=== PATIENT | male | born 1970 | race Caucasian/White ===

== ENCOUNTER 2021-04-02 00:16 | Day surgery (SDC) | payer BC, SELFPAY ==
[2021-03-18 13:33] VITALS: BMI 34.0
--- NOTE | 2021-04-01 14:27 | P.PNAN_ITS ---
Anes - Initial Pre Proc Eval Procedure: Operation Date: 04/02/21 09:15 Proposed Procedures p Screening Colonoscopy - Julian Moreno MD Date/Time: 04/01/21 14:27 Surgeon: Julian Moreno MD Pre Op Diagnosis: neoplasm screening, hx colon polyps Patient Data Age: 50 Gender: M Height: 1.88 m Weight: 120.3 kg Allergies Allergy/AdvReac Type Severity Reaction Status Date / Time No Known Allergies Allergy Unknown Verified 04/02/21 07:51 Home Medications Medication Instructions Recorded Confirmed Type loratadine 10 mg tablet 10 mg PO DAILY 04/24/20 04/02/21 History omeprazole 20 mg tablet,delayed 20 mg PO DAILY 04/24/20 04/02/21 History release Patient hx anesthesia problems: none Family hx anesthesia problems: none Results Review: All pre-operative results and documents have been reviewed as part of the pre-operative evaluation. FORMERLY [facility], [facility] Past Medical History Medical History (Updated 04/01/21 @ 14:27 by Malcom Burdick MD) Chronic GERD Obesity (BMI 30.0-34.9) Splenic mass ct 6.28.17 MRI 7.20.17 PET 8.3.17: repeat ct in 6 months wikiera: 8.25.17- likely benign. repeat MRI in one year. Family History Family History Mother Carcinoma of colon Other Asthma Diabetes mellitus Family history of malignant neoplasm Social History Social History (Updated 04/24/20 @ 13:21 by Haylee Herbert CMA) Smoking status: Never smoker Alcohol intake: current Drinks per week: 3 Alcohol use details: MARY Substance use: never Substance use type: does not use Living arrangements: with family Gender identity (if verbalized by the patient): Male Spiritual care concerns: No Anes - Eval Final PreProcedure Day of Procedure 04/01/21 14:27 Patient weight: obese Heart: regular rate and rhythm Lungs: clear to auscultation and normal air movement Airway: Mallampati scale class II Neurological: alert and oriented Last oral intake: >/= 8 hours ASA classification: II Emergent: no Anesthetic plan: proceed Anesthesia type and monitoring: general GIVS Results Review: All pre-operative results and documents have been reviewed as part of the pre-operative evaluation. Informed Consent: The patient's anesthetic plan and its attendant risks and benefits were discussed with the patient/family/POA. Questions were solicited and answers provided to the satisfaction of the patient/family/POA.
[2021-04-02 07:52] VITALS: BP 147/104; PULSE 81; RESP 16; TEMP 36; O2SAT 98; BMI 34.6
[2021-04-02] MEDS: LACTATED RINGERS 1,000 ML 150 ML IV CONT (08:01)
--- NOTE | 2021-04-02 08:26 | WPDGICN ---
Assessment and Plan Assessment and plan (1) Family history of colon cancer in mother: Code(s): Z80.0 - Family history of malignant neoplasm of digestive organs Status: Acute Assessment and Plan: Patient's mother has had colon cancer. For this reason screening colonoscopy is advised at 5 year intervals in the future. (2) History of colon polyps: Code(s): Z86.010 - Personal history of colonic polyps Status: Acute Assessment and Plan: Patient has a prior history of colon polyps. Most recently 5 years ago. Plan is for surveillance colonoscopy now and at 5 year intervals in the future. GI Consult Note Consult date/time: 04/02/21 08:26 HPI: Carmelo Rodriges is a 50 year old male Presents for colonoscopy. Patient has a history of colon polyps most recently in 2016. Patient's family history is significant his mother had colon cancer. Patient presents today for surveillance colonoscopy. Reports his current weight appetite bowel movements are normal. He denies abdominal pain. He has had no bleeding. Colonoscopy will be performed today. Review of Systems Review of Systems: All systems reviewed & are unremarkable except as noted in HPI and below PMFSH Past Medical History Medical History (Updated 04/02/21 @ 08:28 by Julian Moreno MD) Chronic GERD Obesity (BMI 30.0-34.9) Splenic mass ct 6.28.17 MRI 7.20.17 PET 8.3.17: repeat ct in 6 months wikiera: 8.25.17- likely benign. repeat MRI in one year. Family History Family History Mother Carcinoma of colon Other Asthma Diabetes mellitus Family history of malignant neoplasm Social History Social History (Updated 04/24/20 @ 13:21 by Haylee Herbert CMA) Smoking status: Never smoker Alcohol intake: current Drinks per week: 3 Alcohol use details: MARY Substance use: never Substance use type: does not use Living arrangements: with family Gender identity (if verbalized by the patient): Male Spiritual care concerns: No Meds Home Medications and Allergies Home Medications Medication Instructions Recorded Confirmed Type loratadine 10 mg tablet 10 mg PO DAILY 04/24/20 04/02/21 History omeprazole 20 mg tablet,delayed 20 mg PO DAILY 04/24/20 04/02/21 History release Allergies Allergy/AdvReac Type Severity Reaction Status Date / Time No Known Allergies Allergy Unknown Verified 04/02/21 07:51 Vital Signs Vital Signs - 24 hr 04/02/21 07:52 Temperature 96.8 F L Pulse Rate 81 Respiratory Rate 16 Blood Pressure 147/104 H Pulse Oximetry 98 Exam Narrative: Physical exam reveals patient be alert. Vital signs stable. HEENT exam is unremarkable. Patient is anicteric. Lungs are clear to auscultation and percussion. Heart is without murmur or extra sounds. Abdominal exam bowel sounds are present soft nontender with no organomegaly. Digital external rectal exam is normal.
[2021-04-02 09:19] VITALS: BP 119/77; PULSE 79; RESP 17; O2SAT 94
[2021-04-02 09:29] VITALS: BP 115/80; PULSE 68; RESP 16; O2SAT 96
[2021-04-02 09:39] VITALS: BP 126/92; PULSE 64; RESP 15; O2SAT 97
== END 2021-04-02 09:48 | disposition home or self-care (01) ==
PROVIDERS: PCP Family Medicine; Visit Provider Internal Medicine Gastroenterology
PROC: 0DJD8ZZ Inspection of Lower Intestinal Tract, Via Natural or Artificial Opening Endoscopic (ICD-10-PCS; CPT 45378; principal; 2021-04-02 09:15)
DX: Z12.11 Encounter for screening for malignant neoplasm of colon (principal); K64.8 Other hemorrhoids; Z86.010 Personal history of colon polyps; Z80.0 Family history of malignant neoplasm of digestive organs; K21.9 Gastro-esophageal reflux disease without esophagitis; E66.9 Obesity, unspecified; Z68.34 Body mass index [BMI] 34.0-34.9, adult
CPT/HCPCS: 45378; J2704; J7120

== ENCOUNTER 2021-07-21 19:36 | Emergency (ER) | payer BC, SELFPAY ==
--- NOTE | ~2021-07-21 | XR_ITS ---
XR abdomen/kub 1V DATE: 07/21/2021 19:58 INDICATION: Bilateral back pain radiating anteriorly. Diarrhea. TECHNIQUE: 2 AP views COMPARISON: 01/16/2018 MRI abdomen / CT abdomen pelvis FINDINGS: Nonspecific bowel gas pattern without evidence of obstruction. The psoas shadows are intact . No visceromegaly is evident. Some calcified pelvic phleboliths are noted. IMPRESSION: Nonspecific abdomen Reviewed, dictated and finalized at [facility]. Reviewed, dictated and finalized at [facility]. ATION PRODUCER IMPRESSION: Nonspecific abdomen
--- NOTE | 2021-07-21 19:39 | ED.ABDPAIN ---
HPI - Abdominal Pain General Chief Complaint: Urogenital-Male Stated Complaint: abdomen and back pain Time Seen by Provider: 07/21/21 19:39 Source: patient, RN notes reviewed and old records reviewed Mode of arrival: ambulatory Limitations: no limitations History of Present Illness HPI narrative: 51-year-old patient [facility] complaints of severe right back radiating to abdomen starting last night. Some left back pain radiating to abdomen, right flank to abdomen pain greater than left. Woke him up from a sound sleep last night. Patient had difficulty sleeping last night and pain continued today. Patient has been unable to get any relief from pain. Patient also started having diarrhea last night when the pain started has been having diarrhea throughout the day today. Urinated this morning, has only been urinating small amounts since then. Was able to give urine specimen in clinic of 30 mL. Reports passing kidney stones 2 weeks ago, it felt a lot like this . Denies abdominal pain other than when pain radiates from back to abdomen. Has had sweats off and on all day today. MD elicited complaint: abdominal pain and flank pain (Both, right greater than left) Related Data Home Medications Medication Instructions Recorded Confirmed loratadine 10 mg tablet 10 mg PO DAILY 04/24/20 07/21/21 omeprazole 20 mg tablet,delayed 20 mg PO DAILY 04/24/20 07/21/21 release Allergies Allergy/AdvReac Type Severity Reaction Status Date / Time No Known Allergies Allergy Unknown Verified 07/21/21 19:51 Review of Systems Review of Systems: CONSTITUTIONAL: Denies fever or chills. Reports sweats off and on all day. EYES: Denies visual changes, redness, or discharge. ENT: Denies rhinorrhea, congestion, sore throat, or otalgia. CARDIOVASCULAR: Denies chest pain, palpitations, or edema. RESPIRATORY: Denies cough or dyspnea. GASTROINTESTINAL: Denies nausea, vomiting. Reports diarrhea since yesterday. GENITOURINARY: Denies hematuria. Some burning with urination. SKIN: Denies rash or itching. MUSCULOSKELETAL: Bilateral flank pain radiating to abdomen, right sided pain greater than left. NEUROLOGIC: Denies headache, numbness, or weakness. PSYCHIATRIC: Denies anxiety or depression. All other systems reviewed are negative, except as documented in HPI. All systems reviewed & are unremarkable except as noted in HPI and below PMFSH Past Medical History Medical History Chronic GERD Obesity (BMI 30.0-34.9) Splenic mass ct 6.28.17 MRI 7.20.17 PET 8.3.17: repeat ct in 6 months wikiera: 8.25.17- likely benign. repeat MRI in one year. Surgical History Surgical History (Updated 07/22/21 @ 01:18 by Melodie Knight PA-C) No pertinent past surgical history Family History Family History Mother Carcinoma of colon Other Asthma Diabetes mellitus Family history of malignant neoplasm Social History Social History Smoking status: Never smoker Alcohol intake: current Drinks per week: 3 Alcohol use details: MARY Substance use: never Substance use type: does not use Gender identity (if verbalized by the patient): Male Spiritual care concerns: No Comments At time of signature, agree with nursing past medical, surgical, social and family history. There is no relevant family history pertinent to the presenting complaint Exam Narrative: GENERAL: present in exam room. Well-appearing, well-nourished, male and in no acute distress. Mildly ill-appearing, uncomfortable due to back and abdominal pain. HEAD: Normocephalic, atraumatic. EYES: Conjunctivae clear, and EOMI. ENT: Nares clear, no rhinorrhea or epistaxis. Mucous membranes moist. NECK: Supple. Full range of motion. No lymphadenopathy CHEST: Clear to auscultation, anteri
[2021-07-21 19:48] VITALS: BP 124/96; PULSE 127; RESP 24; TEMP 38.2; O2SAT 99
== END 2021-07-21 20:19 | disposition short-term general hospital (02) ==
PROVIDERS: Emergency Provider Nurse Practitioner Family; PCP Family Medicine
DX: R10.9 Unspecified abdominal pain (principal); R39.198 Other difficulties with micturition; E66.9 Obesity, unspecified; Z68.33 Body mass index [BMI] 33.0-33.9, adult
CPT/HCPCS: 74018; 81003; 87086; 99212; G0463

== ENCOUNTER 2021-07-21 20:31 | Emergency (ER) | payer BC, SELFPAY ==
--- NOTE | ~2021-07-21 | CT_ITS ---
EXAMINATION: CT abdomen pelvis wo con DATE: 07/21/2021 22:54 INDICATION: Right flank pain. History of kidney stones. TECHNIQUE: Computed tomography (CT) of the abdomen and pelvis was performed without intravenous contr ast. Automated exposure control and iterative reconstruction technique were employed. Exam dose: 900 .66 mGy-cm total exam DLP. COMPARISON: 07/21/2021 KUB 08/29/2012 CT abdomen pelvis FINDINGS: Stable 7.7 mm peripheral left lower lobe high density pulmonary nodule since 08/29/2012, like ly a benign calcified pulmonary granuloma. New findings since 09/08/2012: Additional 4 mm left lower lobe nodule at the posterior aspect of the diaphragm. At least several 4 mm or smaller additional right lower lobe pulmonary nodules. There is mild discoid atelectasis or scarring in the lower lobes. Normal heart size. No pericardial or pleural effusion. Hepatic steatosis. No hepatic space-occupying mass lesion or bile duct dilatation is evident. Approximately 3 cm subtle hypoattenuating mass is suggested in the dome of the spleen. CT examination with IV contrast material or MRI would be helpful for further evaluation. The gallbladder is present. No bile duct or pancreatic duct dilatation. No pancreatic mass lesion or calcification. Normal morphology of the adrenal glands. No urinary tract calculus or hydroureteronephrosis. Normal caliber of the abdominal aorta. No intraperitoneal or retroperitoneal or pelvic mass lesion or adenopathy or ascites. There is prostate enlargement and calcification. The urinary bladder is unremarkable. Normal appendix. No bowel obstruction or intraperitoneal free air. Small fat-containing inguinal hernia. Moderately severe degenerative disc disease and mild retrolisthesis at L5-S1. No suspicious osteolyti c or osteoblastic lesions. IMPRESSION: No urinary tract calculus or hydroureteronephrosis Hepatic steatosis Nonspecific 3 cm mass at that the splenic dome, consider CT examination with IV contrast material or MRI Prostate enlargement and calcification Occasional 4 mm smaller lower lung pulmonary nodules, nonspecific; the absence of any risk factors, c onsider CT follow-up in 12 months Reviewed, dictated and finalized at [facility] Reviewed, dictated and finalized at [facility]. S MANAGER IMPRESSION: No urinary tract calculus or hydroureteronephrosis Hepatic steatosis Nonspecific 3 cm mass at that the splenic dome, consider CT examination with IV contrast material or MRI Prostate enlargement and calcification Occasional 4 mm smaller lower lung pulmonary nodules, nonspecific; the absence of any risk factors, consider CT follow-up in 12 months
[2021-07-21 20:46] VITALS: BP 133/86; PULSE 109; RESP 18; TEMP 36.9; O2SAT 97
[2021-07-21 21:02] LABS: Basophils Percent Auto 0.3 % (0.2-1.2); Eosinophils Absolute Auto 0.1 K/mm3 (0-0.3); Eosinophils Percent Auto 0.6 % (0-4.4); Hematocrit 49.7 % (42.0-52.0); Hemoglobin 17.3 g/dL (14.0-18.0); Immature Granulocyte Absolute 0.05 K/mm3 (0.00-0.031); Immature Granulocyte Percent A 0.6 % (0-0.5); Lymphocytes Absolute Auto 0.56 K/mm3 (0.9-3.2); Lymphocytes Percent Auto 6.5 % (18.3-44.2); Mean Corpuscular HGB Conc 34.8 g/dl (32-36); Mean Corpuscular Volume 83.4 fl (80-100); Mean Platelet Volume 12.8 fl (7.4-10.4); Monocytes Absolute Auto 0.6 K/mm3 (0.1-0.6); Monocytes Percent Auto 6.5 % (2.6-8.5); Neutrophils Absolute Auto 7.4 K/mm3 (1.3-6.7); Neutrophils Percent Auto 85.5 % (45.5-73.1); Platelet Count Result 181 k/mm3 (150-375); Red Blood Count 5.96 M/mm3 (4.6-6.20); Red Cell Distribution Width 14.1 % (11.5-14.5); White Blood Count 8.6 K/mm3 (4.5-10.0)
[2021-07-21 21:11] LABS: Alanine Aminotransferase 56 U/L (4-50); Albumin Level 4.1 g/dL (3.5-5.1); Alkaline Phosphatase 90 U/L (38-126); Anion Gap 10 mmol/L (8-16); Aspartate Amino Transferase 33 U/L (17-59); Bilirubin,Total 1.5 mg/dL (0.2-1.3); Blood Urea Nitrogen 16 mg/dL (9-20); Calcium 8.6 mg/dL (8.4-10.2); Carbon Dioxide 19 mmol/L (22-30); Chloride 109 mmol/L (98-107); Estimated CRCL calculation 93 ml/min; Estimated Glomerular Filt Rate > 60; Glucose 122 mg/dL (65-110); Potassium 3.9 mmol/L (3.4-5.0); Sodium 138 mmol/L (137-145)
[2021-07-21 22:29] LABS: Add Urine Microscopic? YES; Appearance Urine Clear (Clear); Bilirubin Urine Negative (Negative); Blood Urine Negative (Negative); Color Urine Yellow (Yellow); Glucose Urine UA Negative (Negative); Ketones Urine Trace mg/dL (Negative); Leukocyte Esterase Ur Negative LEU/UL (Negative); Mucus Urine Few /lpf; Nitrate Urine Negative (Negative); Protein Urine 1+ mg/dL (Negative); RBC Urine 0-2 /hpf (0-2); Squamous Epithelial Cell Urine Occasional /hpf (Few); Urobilinogen Urine Negative mg/dL (<2.0); WBC Urine 0-3 /hpf
[2021-07-21 22:33] LABS: Specific Grav Ur 1.032 (1.001-1.035)
--- NOTE | 2021-07-21 22:34 | ED.ABDPAIN ---
HPI - Abdominal Pain General Chief Complaint: Abdominal Pain <AARON Rodriguez Last Filed: 07/22/21 01:23> Stated Complaint: right flank abd pain <AARON Rodriguez Last Filed: 07/22/21 01:23> Time Seen by Provider: 07/21/21 22:20 <AARON Rodriguez Last Filed: 07/22/21 01:23> Source: patient <AARON Rodriguez Last Filed: 07/22/21 01:23> Mode of arrival: ambulatory <AARON Rodriguez Last Filed: 07/22/21 01:23> Limitations: no limitations <AARON Rodriguez Last Filed: 07/22/21 01:23> History of Present Illness HPI narrative: Patient is a 51-year-old male with no significant past medical history who presents to the ED from urgent care with complaints of right flank pain rating around to his right lower abdomen that began last night. Patient has a history of kidney stones and states he last passed a stone 2 weeks ago. He did not experience flank pain at that time, but had pain when the stone was traveling through his urethra. He has not seen a urologist for this. Patient also reports having nausea, diarrhea, dysuria, and oliguria today, but he denies any known fever, vomiting, hematuria. Patient took ibuprofen this morning at 4:30 PM today. <AARON Rodriguez Last Filed: 07/22/21 01:23> Related Data Home Medications: Home Medications Medication Instructions Recorded Confirmed loratadine 10 mg tablet 10 mg PO DAILY 04/24/20 07/21/21 omeprazole 20 mg tablet,delayed 20 mg PO DAILY 04/24/20 07/21/21 release <AARON Rodriguez Last Filed: 07/22/21 01:23> Allergies/Adverse Reactions: Allergies Allergy/AdvReac Type Severity Reaction Status Date / Time No Known Allergies Allergy Unknown Verified 07/21/21 19:51 <AARON Rodriguez Last Filed: 07/22/21 01:23> Review of Systems Review of Systems: CONSTITUTIONAL: Denies fever, chills, or sweats. CARDIOVASCULAR: Denies chest pain. RESPIRATORY: Denies dyspnea. GASTROINTESTINAL: Reports right lower abdominal pain, nausea, diarrhea. Denies vomiting. GENITOURINARY: Reports dysuria, oliguria. Denies hematuria. MUSCULOSKELETAL: Reports right lower back/flank pain. Denies joint pain or myalgia. NEUROLOGIC: Denies headache, numbness, or weakness. <Melodie Knight PA-C - Last Filed: 07/22/21 01:23> All systems reviewed & are unremarkable except as noted in HPI and below <Melodie Knight PA-C - Last Filed: 07/22/21 01:23> [facility] Past Medical History Medical History: Medical History Chronic GERD Obesity (BMI 30.0-34.9) Splenic mass ct 6.28.17 MRI 7.20.17 PET 8.3.17: repeat ct in 6 months wikiera: 8.25.17- likely benign. repeat MRI in one year. <Melodie Knight PA-C - Last Filed: 07/22/21 01:23> Surgical History Surgical History: Surgical History (Updated 07/22/21 @ 01:18 by Melodie Knight PA-C) No pertinent past surgical history <Melodie Knight PA-C - Last Filed: 07/22/21 01:23> Family History Family History: Family History Mother Carcinoma of colon Other Asthma Diabetes mellitus Family history of malignant neoplasm <Melodie Knight PA-C - Last Filed: 07/22/21 01:23> Social History Social History: Social History Smoking status: Never smoker Alcohol intake: current Drinks per week: 3 Alcohol use details: MARY Substance use: never Substance use type: does not use Gender identity (if verbalized by the patient): Male Spiritual care concerns: No <Melodie Knight PA-C - Last Filed: 07/22/21 01:23> Exam Narrative: GENERAL: Well appearing, well-nourished, non-toxic, in no acute distress. HEAD: Normocephalic, atraumatic. NECK: Supple. No adenopathy, no masses. RESPIRATORY: Airway patent, respirations nonlabored. Clear to auscultation bilaterally,
[2021-07-21] MEDS: KETOROLAC 30 MG/ML VIAL (*BKC) IV PUSH (23:10)
[2021-07-21] MEDS: ONDANSETRON INJ 4 MG/2 ML VIAL IV PUSH (23:12)
[2021-07-21 23:16] VITALS: BP 123/92; O2SAT 97
[2021-07-21] MEDS: SODIUM CHLORIDE 0.9% IV 1,000 ML 999 ML IV CONT (23:17)
[2021-07-21 23:28] VITALS: O2SAT 96
[2021-07-22 01:45] VITALS: BP 120/63; PULSE 94; RESP 16; TEMP 36.4; O2SAT 96
== END 2021-07-22 01:49 | disposition home or self-care (01) ==
LOC: ANHED 23:12
PROVIDERS: Emergency Provider Emergency Medicine; PCP Family Medicine
DX: R10.9 Unspecified abdominal pain (principal); R16.1 Splenomegaly, not elsewhere classified; R91.8 Other nonspecific abnormal finding of lung field; K21.9 Gastro-esophageal reflux disease without esophagitis; E66.9 Obesity, unspecified; Z68.33 Body mass index [BMI] 33.0-33.9, adult; K76.0 Fatty (change of) liver, not elsewhere classified; N40.0 Benign prostatic hyperplasia without lower urinary tract symptoms
CPT/HCPCS: 36415; 74018; 74176; 80053; 81001; 81003; 85025; 87086; 96361; 96374; 96375; 99284; J1885; J2405; J7030

== ENCOUNTER → 2023-04-05 14:52 | Outpatient (CLI) | payer BC, SELFPAY ==
--- NOTE | ~2023-04-05 | MR_ITS ---
EXAMINATION: MR abdomen wo/w con DATE: 04/05/2023 15:56 INDICATION: Splenomegaly. TECHNIQUE: Magnetic resonance imaging (MRI) of the abdomen was performed without and with 20 mL Multi Kit intravenous contrast. COMPARISON: Abdomen MRI 01/16/2018, CT abdomen and pelvis 07/21/2021 FINDINGS: There is diffuse hepatic steatosis. The gallbladder, pancreas, adrenal glands, and kidneys are normal . The spleen is normal in size. There are multiple hyperenhancing masses in the spleen measuring up t o 3.5 cm, stable from 01/16/2018. There are no dilated loops of bowel. There are no pathologically enl arged lymph nodes. There is no free intraperitoneal fluid. IMPRESSION: 1. Hyperenhancing splenic lesions, stable from 01/16/2018, likely hemangiomas or hamartomas. 2. Diffuse hepatic steatosis. Reviewed, dictated and finalized at [facility]. 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
== END ==
PROVIDERS: PCP Physician Assistant; Visit Provider Physician Assistant
DX: R16.1 Splenomegaly, not elsewhere classified (principal); K76.0 Fatty (change of) liver, not elsewhere classified
CPT/HCPCS: 74183; A9577